=== PATIENT | female | born 1965 | race African-American/Black ===

== ENCOUNTER 2018-01-17 16:40 | Emergency (ER) | payer OTHER ==
[~2018-01-17] VITALS: Ht 162.6 cm; Wt 119.0 kg
[2018-01-17] MEDS ORDERED: GLIP5TAB12 MT (16:56)
[2018-01-17] MEDS ORDERED: AMLO5TAB88 MT (16:56)
[2018-01-17 17:10] VITALS: BP 142/86
[2018-01-17] MEDS ORDERED: ASPIRIN 81MG TABLET PO ONE (17:30)
== END 2018-01-17 18:25 | disposition left against medical advice (07) ==
LOC: ER 16:40
DX: R07.89 Other chest pain (principal); I10 Essential (primary) hypertension; E11.9 Type 2 diabetes mellitus without complications; F17.200 Nicotine dependence, unspecified, uncomplicated; E66.01 Morbid (severe) obesity due to excess calories; Z68.42 Body mass index [BMI] 45.0-49.9, adult; Z79.84 Long term (current) use of oral hypoglycemic drugs
CPT/HCPCS: 93005; 99283